=== PATIENT | female | born 1990 ===

== ENCOUNTER → 2018-05-27 | Outpatient (CLI) | payer OTHER ==
[2018-05-27 18:54] LABS: CHOLESTEROL RISK RATIO 2.7
== END ==
LOC: ZCOL.LAB 16:27
PROVIDERS: Family Medicine
DX: Z01.89 Encounter for other specified special examinations (principal)

== ENCOUNTER 2019-11-03 18:06 | Outpatient (CLI) | payer BC ==
[~2019-11-03] VITALS: Ht 170.2 cm; Wt 94.5 kg
--- NOTE | 2019-11-03 17:50 | NUR ---
Patient to LR1 with spouse via wheelchair, changed into gown, FHR/TOCO monitors placed and explained. Patient states she started bk around 1700. Denies any leaking of fluid/vaginal bleeding/decreased movement. Plan of care discussed. 1754: SVE per Yann CHAPMAN / and anterior. Dr. Kuhn called and orders received. 1804: IV started left hand, blood obtained, LR infusing.
[2019-11-03 18:15] VITALS: BP 138/85; PULSE 103; TEMP 98.3
--- NOTE | 2019-11-03 18:18 | NUR ---
Brethine 0.25mg IM in right upper arm given. 1819: Report given to Olvin CHAPMAN.
[2019-11-03] MEDS ORDERED: ASPIRIN 81M81 MG/TA2 PO (18:27)
[2019-11-03] MEDS ORDERED: PRENATAL TABLET PO (18:27)
[2019-11-03 19:15] VITALS: PULSE 102
[2019-11-03 19:55] VITALS: BP 137/73; PULSE 92
[2019-11-03 20:49] VITALS: BP 119/66; PULSE 88; TEMP 97.9
[2019-11-04 06:00] VITALS: BP 129/70; PULSE 82; TEMP 97.8
--- NOTE | 2019-11-04 06:20 | NUR ---
0620-Recieved bedsdie shift report from ADELA Bah. Patient WR with spouse at bedside and INT to left hand. Denies complaints or needs. Updated on plan of care. [id number] Patient to bathroom and easily voids and returns to bed WR. 0703-Patient off EFM, updated on discharge plan. 0710-Reviwed discharge instructions with patient. Patient verbalized understanding and denies questions. 1720-Ambulatory off unit with spouse.
[2019-11-04 06:30] VITALS: BP 116/71; PULSE 86; TEMP 98.2
== END 2019-11-04 07:20 | disposition home or self-care (01) ==
LOC: LDRO 18:06 → LDR 18:06 → LDRO 11-04 07:20
DX: O62.9 Abnormality of forces of labor, unspecified (principal); Z3A.35 35 weeks gestation of pregnancy
CPT/HCPCS: OP; J2270; J2550; J3105; J7120

== ENCOUNTER 2019-11-23 19:38 | Outpatient (CLI) | payer BC ==
[~2019-11-23] VITALS: Ht 170.2 cm; Wt 96.4 kg
[~2019-11-23 19:38] MED LIST: ASPIRIN 81M81 MG/TA2 PO; PRENATAL TABLET PO
--- NOTE | 2019-11-23 19:50 | NUR ---
G2L1. 38-4. Wheeled to LDR 2 with spouse. Clean gown on. EFM and TOCO explained and applied. Pt states she has been having contractions since 1800 and they are 5 mins apart. Pt denies leaking of fluids or vaginal bleeding. Reports good movement. SVE 4-5/80/-2. Plan of care explained to pt and who verbalize their understanding. Assessment and VS taken. 2015: at nurses station and reviews FHR strip. Update on pt given. See phyiscan notification.
[2019-11-23] MEDS ORDERED: TYLENOL PM EXTR1 TA1 PO (20:09)
[2019-11-23 20:30] VITALS: BP 130/84; PULSE 99
[2019-11-23 21:00] VITALS: BP 121/67; PULSE 86
[2019-11-23 21:34] VITALS: BP 117/65; PULSE 90
--- NOTE | 2019-11-23 21:34 | NUR ---
PT OFF MONITOR AT THIS TIME TO AMBULATE AND USE BIRTHING BALL. WILL REASSESS SVE AT APPROXIMATELY 2215.
[2019-11-23 22:43] VITALS: BP 123/60; PULSE 86
--- NOTE | 2019-11-23 23:00 | NUR ---
223- PT MAY DC HOME PER DR. GARCÍA. 224- PT OFF MONITORS AND ALLOWED TO CHANGE INTO OWN CLOTHES. 2300- DISCHARGE INSTRUCTIONS REVIEWED WITH PT AND SPOUSE, UNDERSTANDING VERBALIZED. PT ENCOURAGE TO CONTACT THIS UNIT OR [facility] WITH QUESTIONS OR CONCERNS, UNDERSTANDING VERBALIZED. PT AND SPOUSE OFF UNIT AMBULATORY FOR HOME.
== END 2019-11-23 23:00 | disposition home or self-care (01) ==
LOC: LDRO 19:38 → LDR 20:15 → LDRO 23:00
DX: O62.9 Abnormality of forces of labor, unspecified (principal); Z3A.38 38 weeks gestation of pregnancy
CPT/HCPCS: OP

== ENCOUNTER → 2019-11-30 | Outpatient (CLI) | payer BC ==
[~2019-11-30] MED LIST changes: +MOTRIN 600600 MG/TAB PO; +TYLENOL PM EXTR1 TA1 PO
== END | disposition still patient (30) ==
LOC: ZCOL.LAB 08:00
DX: Z20.828 Contact with and (suspected) exposure to other viral communicable diseases (principal)

== ENCOUNTER 2019-12-02 18:41 | Inpatient (IN) | payer BC ==
[~2019-12-02] VITALS: Ht 170.2 cm; Wt 95.5 kg
[~2019-12-02 18:41] MED LIST changes: -MOTRIN 600600 MG/TAB PO
--- NOTE | 2019-12-02 18:55 | NUR ---
G2L1. 39-6. Pt ambulatory to LDR 4 with spouse. Clean gown on. EFM and TOCO explained and applied. Pt states her contractions started about 2 hours ago tonight and have been 5 mins apart. Denies leaking of fluids or vaginal bleeding. Reports good movement. SVE /-2. VS and assessment completed. Plan of care explained to pt and who verbalize their understanding. Call light within reach.
[2019-12-02 19:30] VITALS: BP 122/67; PULSE 89; TEMP 97.9
[2019-12-02 20:00] VITALS: BP 117/68; PULSE 98
--- NOTE | 2019-12-02 20:05 | NUR ---
SVE unchanged. Pt breathing through and crying through contractions. Pt very concerned that she is still hurting and contractions have not slowed down like they normally do when she comes to hospital. 2012: updated on pt status. See physican notification. Pt updated on new orders and staying another hour. 2124: SVE 6/80/-2 per Kate CHAPMAN. Pt states contractions remain the same and have not let up on intensity. Pt very frustrated at this time and states she is "just so tired." 2132: updated on pt status. 2143: pt and updated on new orders. Pt off monitors to ambulate in hallway and use birthing ball. 2235: Monitors reapplied. 5: SVE remains unchanged. Pt continuing to be frustrated and crying with contractions. States "She just does not understand why they cant break muy water." RN educates pt on protocol and plan of care. 7: updated on pts status. Orders for theraputic rest received. 2351: IV started and labs obtained via IV site. LR bolus infusing per orders. One time dose of morphine explained and administered per orders. 2354: Pt states "She does not feel good and feels dizzy." Head of bed lowered, pulse ox applied and BP checked. 0000: Pt feeling better and resting in bed. Pt reports contractions are shorter already. 0055: Pt off monitors to use restroom 0114: RN in room adjusting EFM. [id number]: RN in room adjusting EFM. Difficulty tracing due to maternal being all the way on right side for comfort. 0131: Change in FHR basline from 120bpm to 95-100bpm. SVE unchanged. Pt repositioned to LL, LR bolus started and oxygen applied via oxymask at 10L. Pulse ox applied. 0150: notified of baseline change. Admit orders received. 0153: Pt repositioned to Right lateral and new orders explained to pt and . Pt requesting epidural at this time. 0200: Graeme BOYKIN notified. 0205: Lorna started. 0226: Oxygen removed and pt off monitors to use restroom. 0231: Graeme BOYKIN at bedside. Pt assisted to edge of bed. Monitors reapplied. Difficulty tracing FHR due to maternal position. This RN attempted to adjust EFM. Pulse ox applied. Procedure explained by SPINE SPECIALIST. 0242: Test dose administered by Graeme BOYKIN. See anesthesia records. 0251: Pt assisted to sim-fowlers position. 0335; Desir inserted by Kate RN without difficulties. SVE 7/-2 per Kate. Pt comfortable with epidural. Plan of care explained and questions answered. Pt going to try and get a nap at this time.
[2019-12-02 20:30] VITALS: BP 124/86; PULSE 88
[2019-12-02 21:00] VITALS: BP 127/73; PULSE 85
[2019-12-02 21:30] VITALS: BP 129/83; PULSE 91; TEMP 97.6
[2019-12-03] VITALS (47 sets, daily range): BP systolic 108–159; BP diastolic 56–80; PULSE 72–131; TEMP 97.4–99
[2019-12-03 02:16] LABS: HEMOGLOBIN 11.7 g/dl (12.5-16.0); MEAN CELL VOLUME 89 fl (80.0-100.0); MEAN CORPUSCULAR HEMOGLOBIN 29 pg (27.0-31.0); MEAN CORPUSCULAR HGB CONC 33 g/dl (33.0-37.0); MEAN PLATELET VOLUME 11.1 fl (7.4-10.4); PLATELET COUNT 348 K/mm3 (130-400); RED BLOOD COUNT 4.03 M/mm3 (4.10-5.30); REDCELL DISTRIBUTION WIDTH-CV 13.1 % (11.5-14.5)
[2019-12-03 02:19] LABS: HEMATOCRIT 35.8 % (37.0-47.0)
[2019-12-03 02:50] LABS: BAND 6 % (0-10); BASOPHIL 1 % (0-2); LYMPHOCYTE 13 % (20.0-51.0); NEUTROPHILS 70 % (42.0-75.2)
[2019-12-03 02:51] LABS: PLATELET ESTIMATE NORMAL (NORMAL)
--- NOTE | 2019-12-03 06:45 | NUR ---
CARE OF THE PT ASSUMED AT THIS TIME. PT RESTING COMFORTABLY IN BED. FHT'S WITH MODERATE VARIABILITY AND ACCELS. PEN G #2 FINISHED INFUSING.
--- NOTE | 2019-12-03 07:15 | NUR ---
DR VERDUGO CALLED HERE AT 0707-NOTIFIED OF SVE AND EPIDURAL PLACEMENT. HE WANTS PITOCIN STARTED.
--- NOTE | 2019-12-03 08:15 | NUR ---
DR VERDUGO IN AT 08. SVE /2 AND AROM AT 08 WITH CLEAR FLUID. PERICARE PERFORMED
--- NOTE | 2019-12-03 10:30 | NUR ---
DR VERDUGO IN AT 1019. SVE WITH COMPLETE DILATION. PUSHING STARTED AT 1022 WITH GOOD MOVEMENT OF HEAD WITH PUSHING. HOLLEY REMOVED AT 1030.
--- NOTE | 2019-12-03 10:37 | NUR ---
PT PREPPED AND POSITIONED FOR DELIVERY DR VERDUGO IN AT 1033. PT CONTINUES TO PUSH WITH OF MALE INFANT AT 1037. NUCHAL CORD REDUCED AFTER DELIVERY OF HEAD. PITOCIN STOPPED AFTER DELIVERY OF .
--- NOTE | 2019-12-03 10:45 | NUR ---
DR VERDUGO AT BEDSIDE REPAIRING 2ND DEGREE LACERATION. SPONTANEOUS DELIVERY OF PLACENTA AT 1041. PITOCIN STARTED AT 333ML/HR AFTER DELIVERY OF PLACENTA. FUNDUS FIRM WITH MASSAGE.
--- NOTE | 2019-12-03 12:15 | NUR ---
PT RESTING IN BED HOLDING BABY. FUNDUS FIRM WITH MINIMAL BLEEDING OBSERVED. ABLE TO LIFT LEGS BUT REPORTS UPPER THIGHS AND BUTT STILL NUMB. IV TO INT AT THIS TIME.
--- NOTE | 2019-12-03 12:45 | NUR ---
PT EATING LUNCH. WANTS TO GET UP TO BATHROOM WHEN SHE'S DONE EATING.
--- NOTE | 2019-12-03 13:30 | NUR ---
PT UP TO BATHROOM. AMBULATES WITH STANDBY ASSIST. VOIDS WITHOUT DIFFICULTY. PERICARE PERFORMED. NEW PERIPAD, UNDERWEAR, GOWN AND CHUX PAD IN PLACE. PT LIGHTHEADED AFTER VOIDED. PLACED IN WHEELCHAIR.
[2019-12-04] VITALS: BP 111/49; PULSE 84; TEMP 98.2
[2019-12-04 04:30] VITALS: BP 105/68; PULSE 80; TEMP 97.8
[2019-12-04] MEDS ORDERED: MOTRIN 600600 MG/TAB PO (07:30)
[2019-12-04 08:32] VITALS: BP 111/72; PULSE 88; TEMP 97.7
== END 2019-12-04 13:10 | disposition home or self-care (01) | DRG 806 ==
LOC: LDRO 18:41 → LDR 23:39 → LDRO 12-03 02:02 → LDR 12-03 02:03 → OB 12-03 13:45
PROVIDERS: Obstetrics & Gynecology; ADMIT Obstetrics & Gynecology
PROC: 10E0XZZ Delivery of Products of Conception, External Approach (ICD-10-PCS; principal; 2019-12-03)
PROC: 0KQM0ZZ Repair Perineum Muscle, Open Approach (ICD-10-PCS; 2019-12-03)
DX: O48.0 Post-term pregnancy (principal); O99.12 Other diseases of the blood and blood-forming organs and certain disorders involving the immune mechanism complicating childbirth; Z37.0 Single live birth; D68.51 Activated protein C resistance; Z3A.40 40 weeks gestation of pregnancy; O70.1 Second degree perineal laceration during delivery
CPT/HCPCS: OP; J2270; J2540; J2590; J7120